=== PATIENT | female | born 1980 | race Caucasian/White ===

== ENCOUNTER → 2018-05-05 17:41 | Outpatient (CLI) | payer OTHER, SELFPAY ==
--- NOTE | 2018-05-05 17:44 | MRI_ITS ---
STUDY: MRI BRAIN WITH AND WITHOUT CONTRAST REASON FOR EXAM: Female, 37 years old. Headaches and history of cholesteatoma removal TECHNIQUE: Standardized multiplanar fat and water weighted pulse sequences were obtained. 6 ml of Gadavist contrast material was administered intravenously for the contrast portion of the examination. COMPARISON: March 17, 2012 FINDINGS: Normal size of the ventricles and extra-axial spaces for the patient's age. Normal white matter tracts of the supratentorial brain. Normal bilateral basal ganglia. Normal thalami. There is no extra-axial fluid accumulation. Normal flow voids within the major intracranial circulation suggesting patency by spin echo criteria. Normal venous enhancement. There is no enhancing intra-axial or extra-axial abnormality. Normal sella turcica, pituitary gland, infundibular stalk, optic chiasm and hypothalamus. Normal tectal plate and pineal gland. Normal midbrain, janette and medulla. Normal cerebellum. Normal basal cisterns. Normal bilateral temporal bones. Normal bilateral internal auditory canals. Postop change status post right mastoidectomy No demonstrated orbital abnormality, within the constraints of a routine brain study. There is a small mucous retention cyst within the maxillary sinuses bilaterally. Normal calvarium and skull base. Normal visualized soft tissue structures. Normal visualized upper cervical spine. MRI/Brain W/WO Contrast IMPRESSION: Normal unenhanced and enhanced MRI of the brain. Status post right mastoidectomy. Small bilateral mucous retention cysts in the maxillary sinuses Electronically Signed: Dale Pelletier MD at 19:28 EDT , Service support ,
== END ==
PROVIDERS: Referring Provider Psychiatry & Neurology Neurology; Visit Provider Psychiatry & Neurology Neurology
DX: R51 Headache (principal); Z86.69 Personal history of other diseases of the nervous system and sense organs
CPT/HCPCS: 70553; A9585

== ENCOUNTER → 2018-10-25 16:52 | Outpatient (CLI) | payer OTHER, SELFPAY | PROVIDERS: Referring Provider Nurse Practitioner Family | DX: G47.10 Hypersomnia, unspecified (principal) | CPT/HCPCS: 95806 ==

== ENCOUNTER → 2018-11-07 | Outpatient (CLI) | payer OTHER, SELFPAY | END | disposition home or self-care (01) | LOC: SL 14:03 | PROVIDERS: Referring Provider Nurse Practitioner Family | DX: Z46.89 Encounter for fitting and adjustment of other specified devices (principal) ==

== ENCOUNTER → 2019-03-15 | Outpatient (CLI) | payer OTHER, SELFPAY ==
--- NOTE | 2019-03-15 12:30 | RAD_ITS ---
STUDY: X-RAY CHEST REASON FOR EXAM: Female, 38 years old. Chest pain/pressure TECHNIQUE: PA and lateral views of the chest. COMPARISON: None. FINDINGS: The lungs are clear and expanded. There is no demonstrated pleural abnormality. Normal size heart. Normal mediastinum and rafal. Normal visualized pulmonary arteries. Normal visualized aortic arch and descending thoracic aorta. Normal visualized thoracic spine. Normal visualized ribs, clavicles, and shoulders. There is no demonstrated abnormality of the visualized soft tissue structures of the upper abdomen. RAD/Chest PA and Lateral IMPRESSION: Normal x-ray examination of the chest. Electronically Signed: Rosendo Zhong MD at 17:02 EDT , Service support ,
== END | disposition home or self-care (01) ==
LOC: RAD 12:29
PROVIDERS: Referring Provider Nurse Practitioner Family; Visit Provider Nurse Practitioner Family
DX: R63.4 Abnormal weight loss (principal)
CPT/HCPCS: 71046

== ENCOUNTER 2019-04-04 07:50 | Emergency (ER) | payer OTHER, SELFPAY ==
--- NOTE | 2019-03-22 03:49 | HP_ITS ---
Intake Vital Signs 03/22/19 Height 5 ft 4.5 in 03/22/19 Weight: 113 lb 03/22/19 Body Mass Index (BMI) 19.1 03/22/19 Blood Pressure 110/75 03/22/19 Blood Pressure Location Rt brachial 03/22/19 Respiratory Rate 18 03/22/19 Pulse Rate 92 03/22/19 Pulse Source Monitor 03/22/19 Temperature 97.8 F 03/22/19 Pulse Ox 99 03/22/19 Oxygen Delivery Method room air Intake Visit Reasons: EGD/C-Scope Consult Frame Aligner Required: No Is patient in pain?: No Allergies [facility] [[facility] Allergy (Intermediate, Verified 03/22/19 14:59) Rash neomycin Allergy (Intermediate, Verified 03/22/19 14:59) rash Sulfa (Sulfonamide Antibiotics) Allergy (Intermediate, Verified 03/22/19 14:59) Rash Medications duloxetine 20 mg capsule,delayed release 20 mg PO DAILY cap 03/22/19 [History Confirmed 03/22/19] glimepiride 4 mg tablet 4 mg PO QAM 03/22/19 [History Confirmed 03/22/19] loperamide 2 mg capsule 2 mg PO DAILY cap 03/22/19 [History Confirmed 03/22/19] metformin 1,000 mg tablet 1,000 mg PO BID 03/22/19 [History Confirmed 03/22/19] multivitamin capsule 1 cap PO DAILY 03/22/19 [History] pantoprazole 40 mg tablet,delayed release 40 mg PO DAILY 03/22/19 [History Confirmed 03/22/19] potassium gluconate 600 mg (99 mg) tablet 600 mg PO DAILY 03/22/19 [History] [facility] Medical History Diabetes (Acute) Fibromyalgia (Acute) GERD (gastroesophageal reflux disease) (Acute) History of back problems (Acute) Polyarthritis (Acute) Weight loss (Acute) Chronic pain (Chronic) Surgical History History of (Acute) History of mastoidectomy (Acute) Family History Mother Asthma Grandfather Cancer bone and lung cancer Grandmother Diabetes Hypertension Social History (Updated 03/22/19 @ 15:49 by Darryl Leung MD) Smoking Status: Former smoker alcohol intake: never substance use type: marijuana, other details: prescription for medical marijuana four times daily HPI HPI HPI: PARDEEP YUN, is a 38 F who presents to the office today for HPI HPI Surgical H&P: Yes HPI: PARDEEP YUN, is a 38 F who presents to the office today for Evaluation for endoscopy. Patient has a known history of GERD as well as a history of colon polyps. It is been more than 3 years since her last colonoscopy. In addition the patient has lost approximately 20 pounds over the last 6 months unintentionally. She has been complaining of significant amount of fatigue. She states that her reflux is controlled providing she takes her medication. ROS General General: Yes weight change and fatigue; no appetite, colon cancer, breast cancer or weakness HEENT HEENT: Yes eye surgery; no difficulty swallowing, eye injury, swollen glands or hoarseness Endo Endocrine: Yes diabetes mellitus; no thyroid disease, thyroid cancer, Hair loss, heat intolerance or cold intolerance Skin Skin: No rash or changing moles Breast Breast: No left breast lump, right breast lump, nipple discharge, breast pain, abnormal mammogram, abnormal US or breast enlargement Musc Musculoskeletal: Yes back problems and arthritis; no rheumatoid arthritis, gout or joint pain Cardio Cardiovascular: No murmur, pacemaker, heart disease, atrial fibrillation, high blood pressure, heart attack, heart stent, palpitations, shortness of breat with exertion or chest pain Psych Psychiatric: Yes depression and anxiety; no hearing voices Resp Respiratory: No shortness of breath, Yes sleep apnea, No cough, No COPD, Yes asthma, No emphysema, No wheezing Gastro Gastrointestinal: No abdominal pain, No nausea or vomiting, No diarrhea, No constipation, No blood in stool, Yes acid reflux, No hemorrhoids, No ulcers, No gallbladder problem, No black,tarry stools [place] Hematologic: No blood thinners, No blood disorders, No bleeding, No anemia, No blood clots Neuro Neurologic: No system reviewed and no additional complaints, except as docu, No as per HPI, No abnormal walking, No abnormal hearing, No abnormal movements, No abnormal speech, No behavioral changes, No burning sensations, No confusion, No seizure-like activity, No unsteadiness, No dizziness, No localized weakness, No frequent falls, No headache(s), No lack of coordination, No loss of vision, No memory loss, No numbness, No other visual disturbances, No radiating pain, No restless legs, No sensory deficit, No fainting, No tingling, No tremor(s), No weakness, No other Exam Const General: no acute distress, well developed, well hydrated Orientation: oriented to person, oriented to place, oriented to time [facility] Head: normocephalic, atraumatic Ears: external ears normal Mouth: moist mucous membranes Eyes Sclera: sclerae normal Pupils: normal by confrontation Neck Neck: no lymphadenopathy noted Neck mass: No Thyroid: thyroid normal, symmetrical Chest Chest palpation & inspection: normal inspection of the chest Breast Palpation: No nipple discharge Resp Effort & Inspection: normal respiratory effort Auscultation: clear to auscultation bilaterally Percussion: percussion normal Cardio Rate: regular rate Rhythm: regular rhythm Heart Sounds: no murmurs GI Palpation: soft, no hepatosplenomegaly, no masses, nontender Rectal Exam: other Other: Rectal exam deferred. Extrem General: normal to inspection, no clubbing, cyanosis or edema Assessment & Plan Problems 1. Gastroesophageal reflux disease, esophagitis presence not specified K21.9 2. Personal history of colonic polyps Z86.010 3. Weight loss, unintentional R63.4 Plan I have discussed the above with the patient. I have offered the patient colonoscopy As well as an EGD for evaluation. I have explained the risks/benefits of the procedure and described the procedure. I have discussed the risks with the patient, including but not limited to: infection, bleeding, perforation of the GI tract requiring emergency surgery, inability to complete the procedure, injury to any internal organs, complications of anesthesia, etc. - the patient understands and agrees to proceed. I have answered all the patient's questions to the patient's satisfaction and the patient has no further questions. The patient has been given instructions for the colon cleansing preparation. Coding Level of Care Code Off vis,new,level 3 Diagnoses Gastroesophageal reflux disease, esophagitis presence not specified K21.9 ??Esophagitis presence: esophagitis presence not specified Personal history of colonic polyps Z86.010 Weight loss, unintentional R63.4 03/22/19 5169 <Electronically signed by Darryl Peabod y MD> Date _ Darryl Leung MD I have re-examined the patient. There are no clinical changes since date of exam.
[2019-03-22 14:58] VITALS: BMI 19.1
[2019-04-04 07:17] VITALS: BP 100/57; PULSE 75; RESP 15; TEMP 36.6; O2SAT 100; BMI 18.7
[2019-04-04 07:19] LABS: Internal QC Validated? YES +Cl - CLEAR BKGD; Pregnancy, Urine Negative Negative
[2019-04-04] MEDS: Lactated Ringers 1,000 ML 100 ML IV (07:23)
[2019-04-04 07:26] LABS: Bedside Glucose > 500 mg/dL (70-110)
[2019-04-04 07:38] LABS: Glucose 564 mg/dL (74-106)
[2019-04-04 07:51] LABS: Anion Gap 9 (5-15); BUN 2 mg/dL (7-18); Calcium,Total 8.7 mg/dL (8.5-10.1); Chloride 101 mmol/L (98-107); EST Glomerular Filtration Rate 66 mL/min (>60); Est Glom Filt Rate - Afr Amer 80 mL/min (>60); Estimated Creatinine Clearance 60.45 ml/min; Potassium 3.5 mmol/L (3.5-5.1); Sodium Level 134 mmol/L (136-145)
[2019-04-04 08:06] VITALS: BP 91/65; PULSE 80; RESP 18; TEMP 36.6; O2SAT 100; BMI 18.8
--- NOTE | 2019-04-04 08:33 | ED.DCSUM_ITS ---
History of Present Illness Chief Complaint: Hyperglycemia Informant: Patient Onset: - - Chronic Narrative: Patient came into endoscopy today for a colonoscopy secondary to recent weight loss. Her blood sugar was noted to be over 500 and she was sent to the emergency room. Patient is on glyburide and metformin for her diabetes. She does not check her blood sugars and states she knows she been running high for quite some time. She last saw her physician 3 weeks ago but there is no medication adjustments made at that time. She had missed an appointment last week secondary to being called into work. Past Medical History - Allergies and Home Meds Allergies/Adverse Reactions: Allergies cefaclor [From Ceclor] Allergy (Intermediate, Verified 04/04/19 08:08) Rash neomycin Allergy (Intermediate, Verified 04/04/19 08:08) rash Sulfa (Sulfonamide Antibiotics) Allergy (Intermediate, Verified 04/04/19 08:08) Rash Primary Care Physician: [facility] Womack [Primary Care Provider] - Prior records reviewed: Yes Past Medical History: - - Reviewed Lives: Spouse/ Significant Other Smoking Status: Former smoker Drugs: Marijuana Review of Systems General: Denies: Chills, Fever Eyes: Denies: Visual changes - bilaterally ENT: Denies: Bilateral ear pain Cardiovascular: Denies: Chest pain Respiratory: Denies: Dyspnea Gastrointestinal: Denies: Abdominal pain, Nausea, Vomiting, Diarrhea Skin: Denies: Wounds Neurological: Denies: Headache Allergy: Denies: Uticaria Physical Exam Vital Signs/Narrative: Vital Signs Temp Pulse Resp BP Pulse Ox 04/04/19 08:06 97.9 F 80 18 91/65 100 04/04/19 07:17 97.9 F 75 15 100/57 L 100 Inital Vital Signs reviewed: Yes General: Well nourished, Well developed Eyes: EOMI Neck: Supple Cardiovascular: Regular rate, Regular rhythm Respiratory: No distress, CTA bilaterally Abdomen: Soft, Nontender, Normal bowel sounds Extremities: Nontender Skin: Normal color, No rash Neurological: Alert, Oriented x3 Psychological: Normal affect Diagnostic/Tx/Re-eval Laboratory Results 04/04/19 04/04/19 04/04/19 06:58 06:58 07:00 WBC RBC Hgb Hct MCV MCH MCHC RDW Std Deviation RDW Coeff of Solitario Plt Count MPV Immature Gran % (Auto) Neut % (Auto) Lymph % (Auto) [place] % (Auto) Eos % (Auto) Baso % (Auto) Absolute Neuts (auto) Absolute Lymphs (auto) Nucleated RBC % Sodium Potassium Chloride Carbon Dioxide Anion Gap BUN Creatinine Estim Creat Clear Calc Est GFR (MDRD) Af Amer Est GFR (MDRD) Non-Af BUN/Creatinine Ratio Glucose Hemoglobin A1c Calcium Urine Color Yellow Urine Clarity Sl. Cloudy Urine pH 5.0 Ur Specific Crystal 1.010 Urine Protein Negative Urine Glucose (UA) 1000 H Urine Ketones Negative Urine Occult Blood Negative Urine Nitrite Negative Urine Bilirubin Negative Urine Urobilinogen Normal Ur Leukocyte Esterase Negative Urine RBC 0 SEEN Urine WBC 0 SEEN Ur Squamous Epith Cells 0-5 SEEN Urine Bacteria 0 SEEN Urine Mucus 0 SEEN Urine Test Negative Acetone Level POC Glucose > 500 H* 04/04/19 04/04/19 04/04/19 07:10 08:45 08:45 WBC 9.1 RBC 5.03 Hgb 15.3 H Hct 44.8 MCV 89.1 MCH 30.4 MCHC 34.2 RDW Std Deviation 41.0 RDW Coeff of Solitario 12.6 Plt Count 290 MPV 10.6 Immature Gran % (Auto) 0.400 Neut % (Auto) 64.8 Lymph % (Auto) 28.3 [place] % (Auto) 4.6 Eos % (Auto) 1.4 Baso % (Auto) 0.5 Absolute Neuts (auto) 5.9 Absolute Lymphs (auto) 2.58 Nucleated RBC % 0 Sodium 134 L Potassium 3.5 Chloride 101 Carbon Dioxide 24.0 Anion Gap 9 BUN 2 L Creatinine 1.00 Estim Creat Clear Calc 60.45 Est GFR (MDRD) Af Amer 80 Est GFR (MDRD) Non-Af 66 BUN/Creatinine Ratio 2.0 L Glucose 564 H* Hemoglobin A1c Calcium 8.7 Urine Color Urine Clarity Urine pH Ur Specific Crystal Urine Protein Urine Glucose (UA) Urine Ketones Urine Occult Blood Urine Nitrite Urine Bilirubin Urine Urobilinogen Ur Leukocyte Esterase Urine RBC Urine WBC Ur Squamous Epith Cells Urine Bacteria Urine Mucus Urine Test Acetone Level NEGATIVE POC Glucose 04/04/19 04/04/19 08:45 10:19 WBC RBC Hgb Hct MCV MCH MCHC RDW Std Deviation RDW Coeff of Solitario Plt Count MPV Immature Gran % (Auto) Neut % (Auto) Lymph % (Auto) [place] % (Auto) Eos % (Auto) Baso % (Auto) Absolute Neuts (auto) Absolute Lymphs (auto) Nucleated RBC % Sodium Potassium Chloride Carbon Dioxide Anion Gap BUN Creatinine Estim Creat Clear Calc Est GFR (MDRD) Af Amer Est GFR (MDRD) Non-Af BUN/Creatinine Ratio Glucose Hemoglobin A1c 14.1 H Calcium Urine Color Urine Clarity Urine pH Ur Specific Crystal Urine Protein Urine Glucose (UA) Urine Ketones Urine Occult Blood Urine Nitrite Urine Bilirubin Urine Urobilinogen Ur Leukocyte Esterase Urine RBC Urine WBC Ur Squamous Epith Cells Urine Bacteria Urine Mucus Urine Test Acetone Level POC Glucose 369 H - Medical Decision Making Patient was given a liter of IV fluids and blood sugar came down to 369. I spoke with her provider through [facility]. Patient is willing to start insulin and will be started on 15 units at bedtime and she will be told to hold her glimepiride. She has a follow-up appointment scheduled next week. She was given 10 units of insulin here after receiving 1 L IV fluids. ED Disposition - Plan for ED Patient: Disposition: Home or Assisted Living Diagnosis: Hyperglycemia Instructions: ED Diabetic Hyperglycemia Prescriptions: Insulin Glargine,Hum.rec.anlog [Basaglar Kwikpen U-100] 15 unit SC QHS #1 insuln.pen [facility] [Primary Care Provider] - [facility] appointment Additional Instructions: STOP YOUR GLIMEPIRIDE. Start insulin at bedtime. Follow-up next week as scheduled.
[2019-04-04 08:49] LABS: Bacteria 0 SEEN /hpf (None Seen); Mucous, Urine 0 SEEN /hpf (<or=2+); Red Blood Cells-Urine 0 SEEN /hpf (0-5); White Blood Cells 0 SEEN /hpf (0-5)
[2019-04-04 08:50] LABS: Absolute Lymphocyte Count 2.58 X10^3/uL (0.83-4.51); Absolute Neutrophil Count 5.9 X10^3/uL (2.0-7.7); Basophil# 0.05 X10^3/uL; Basophil% 0.5 % (0-1); Eosinophil# 0.13 X10^3/uL; Eosinophils% 1.4 % (0-5); Hematocrit 44.8 % (37-47); Hemoglobin 15.3 g/dL (12.0-15.0); Lymphocyte # 2.58 X10^3/ul (4.0); Lymphocyte % 28.3 % (19-41); Mean Corp Hgb Conc 34.2 g/dL (32-36); Mean Corpuscular Hgb 30.4 pg (27.0-32.0); Mean Corpuscular Volume 89.1 fL (81-99); Mean Platelet Vol. 10.6 fl (6.2-12.0); Monocyte# 0.42 X10^3/uL; Monocyte% 4.6 % (0-10); NRBC Flagged by Analyzer 0 % (0-5); Neutrophil % 64.8 % (47-70); Platelet Count 290 K/mm3 (150-450); RBC Distribution Width CV 12.6 % (11.6-14.6); Red Blood Count 5.03 M/mm3 (4.2-5.4); White Blood Count 9.1 K/mm3 (4.4-11.0)
[2019-04-04 08:54] LABS: Color, Urine Yellow (Yellow); Glucose, Dipstick 1000 mg/dl (Normal); Ketone-Dipstick Negative (Negative); Leukocyte Esterase-Dipstick Negative /ul (Negative); Nitrite-Dipstick Negative (Negative); Occult Blood-Urine Negative /ul (Negative); Protein-Dipstick Negative (Negative); Urine Bilirubin Dipstick Negative (Negative); Urine Clarity Sl. Cloudy (Clear); Urine Urobilinogen Normal (Normal)
[2019-04-04] MEDS: 0.9% Normal Saline 1,000 ML 1000 ML IV (08:54)
[2019-04-04 08:59] LABS: Squamous Epithelial Cells - UA 0-5 SEEN /hpf (5-10)
[2019-04-04 09:11] LABS: Hemoglobin A1c 14.1 % (4.2-6.3)
[2019-04-04 10:26] LABS: Bedside Glucose 369 mg/dL (70-110)
[2019-04-04 10:27] VITALS: BP 107/78; PULSE 73; RESP 16; O2SAT 100
[2019-04-04] MEDS: 0.9% Normal Saline 1,000 ML 150 ML IV (10:36)
[2019-04-04] MEDS: Insulin Lispro 100 UNIT/ML INSULN.PEN 10 UNIT SC (10:37)
[2019-04-04 11:28] VITALS: BP 97/72; PULSE 80; RESP 16; O2SAT 98
[2019-04-04 11:50] LABS: Bedside Glucose 370 mg/dL (70-110)
--- NOTE | 2019-04-04 12:17 | ED.RN ---
teaching went over and given with pt returning demo well. instructed on insulin and checking bs 4x a day and keeping log. no questions voiced
[2019-04-04 12:18] VITALS: BP 81/59; PULSE 73; RESP 16; O2SAT 98
== END 2019-04-04 12:21 | disposition home or self-care (01) ==
LOC: EN 07:51 → AC 07:53 → ED 08:12
PROVIDERS: Anesthesiology; Emergency Provider Emergency Medicine; Visit Provider Surgery
DX: E11.65 Type 2 diabetes mellitus with hyperglycemia (principal); Z87.891 Personal history of nicotine dependence; Z79.84 Long term (current) use of oral hypoglycemic drugs
CPT/HCPCS: 80048; 81001; 81025; 82009; 82962; 83036; 85025; 96360; 96361; 99284; J7030; J7120; A4216; J2405

== ENCOUNTER → 2019-06-27 20:33 | Outpatient (CLI) | payer OTHER, SELFPAY ==
[2019-06-13 14:52] VITALS: BMI 18.8
== END ==
DX: G47.33 Obstructive sleep apnea (adult) (pediatric) (principal)
CPT/HCPCS: 95810

== ENCOUNTER 2019-07-09 06:29 | Day surgery (SDC) | payer OTHER, SELFPAY ==
--- NOTE | 2019-06-13 03:08 | HP_ITS ---
Intake Vital Signs 06/13/19 Body Mass Index (BMI) 18.8 Intake Visit Reasons: reschedule for cscope/egd, blood sugar controlled Plastic Extrusion Operator Required: No Is patient in pain?: No Allergies cefaclor [From Ceclor] Allergy (Intermediate, Verified 06/13/19 14:51) Rash neomycin Allergy (Intermediate, Verified 06/13/19 14:51) rash Sulfa (Sulfonamide Antibiotics) Allergy (Intermediate, Verified 06/13/19 14:51) Rash Medications duloxetine 20 mg capsule,delayed release 20 mg PO DAILY cap 03/22/19 [History Confirmed 06/13/19] metformin 1,000 mg tablet 1,000 mg PO BID 03/22/19 [History Confirmed 06/13/19] multivitamin capsule 1 cap PO DAILY 03/22/19 [History Confirmed 06/13/19] pantoprazole 40 mg tablet,delayed release 40 mg PO DAILY 03/22/19 [History Confirmed 06/13/19] potassium gluconate 600 mg (99 mg) tablet 600 mg PO DAILY 03/22/19 [History Confirmed 06/13/19] Levonorgesterol [Mirena] 1 ea IY X1 03/30/19 [History Confirmed 06/13/19] Insulin Glargine,Hum.rec.anlog [Juan Magljean marie Cruz U-100] 15 unit SUBCUT [facility] #1 insuln.pen 04/04/19 [Rx Confirmed 06/13/19] [facility] Medical History Diabetes (Acute) Fibromyalgia (Acute) GERD (gastroesophageal reflux disease) (Acute) History of back problems (Acute) Polyarthritis (Acute) Weight loss (Acute) Chronic pain (Chronic) Surgical History History of (Acute) History of mastoidectomy (Acute) Family History Mother Asthma Grandfather Cancer bone and lung cancer Grandmother Diabetes Hypertension Social History (Updated 06/13/19 @ 15:08 by Darryl Leung MD) Smoking Status: Former smoker alcohol intake: never substance use type: marijuana, other details: prescription for medical marijuana four times daily HPI HPI HPI: PARDEEP YUN, is a 38 F who presents to the office today for HPI HPI Surgical H&P: Yes HPI: PARDEEP YUN, is a 38 F who presents to the office today for Endoscopic evaluation. Patient has a known history of GERD as well as a history of colon polyps. It is been more than 3 years since her last colonoscopy. In addition the patient has lost approximately 20 pounds over the last 6 months unintentionally. She has been complaining of significant amount of fatigue. She states that her reflux is controlled providing she takes her medication. Prior to her Endoscopy several months ago she was noted to have blood sugars above 500 everything was subsequently canceled she has been seeing her primary care physician and has been working on getting her blood sugars both low 500 and for the most part she has been doing well it is as good as it is going to get prior to her seeing the wheel blocker for further evaluation. In her logs her blood sugars have been running all the way from mid 300s all the way down to 63 she has been taking very good notes on what she is taking and what her blood sugars are her blood sugars just before lunch seem to be the hardest wants to keep under control in the ones before dinner seem to be the lowest. All of these have been well below 500. ROS General General: Yes weight change and fatigue; no appetite, colon cancer, breast cancer or weakness HEENT HEENT: Yes eye surgery; no difficulty swallowing, eye injury, swollen glands or hoarseness Endo Endocrine: Yes diabetes mellitus; no thyroid disease, thyroid cancer, Hair loss, heat intolerance or cold intolerance Skin Skin: No rash or changing moles Breast Breast: No left breast lump, right breast lump, nipple discharge, breast pain, abnormal mammogram, abnormal US or breast enlargement Musc Musculoskeletal: Yes back problems and arthritis; no rheumatoid arthritis, gout or joint pain Cardio Cardiovascular: No murmur, pacemaker, heart disease, atrial fibrillation, high blood pressure, heart attack, heart stent, palpitations, shortness of breat with exertion or chest pain Psych Psychiatric: Yes depression and anxiety; no hearing voices Resp Respiratory: No shortness of breath, Yes sleep apnea, No cough, No COPD, Yes asthma, No emphysema, No wheezing Gastro Gastrointestinal: No abdominal pain, No nausea or vomiting, No diarrhea, No constipation, No blood in stool, Yes acid reflux, No hemorrhoids, No ulcers, No gallbladder problem, No black,tarry stools [place] Hematologic: No blood thinners, No blood disorders, No bleeding, No anemia, No blood clots Neuro Neurologic: No weakness Exam Const General: no acute distress, well developed, well hydrated Orientation: oriented to person, oriented to place, oriented to time [facility] Head: normocephalic, atraumatic Ears: external ears normal Mouth: moist mucous membranes Eyes Sclera: sclerae normal Pupils: normal by confrontation Neck Neck: no lymphadenopathy noted Neck mass: No Thyroid: thyroid normal, symmetrical Chest Chest palpation & inspection: normal inspection of the chest Breast Palpation: No nipple discharge Resp Effort & Inspection: normal respiratory effort Auscultation: clear to auscultation bilaterally Percussion: percussion normal Cardio Rate: regular rate Rhythm: regular rhythm Heart Sounds: no murmurs GI Palpation: soft, no hepatosplenomegaly, no masses, nontender Rectal Exam: other Other: Rectal exam deferred. Extrem General: normal to inspection, no clubbing, cyanosis or edema Assessment & Plan Problems 1. Gastroesophageal reflux disease, esophagitis presence not specified K21.9 2. Personal history of colonic polyps Z86.010 3. Weight loss, unintentional R63.4 Plan I have discussed the above with the patient. I have offered the patient colonoscopy As well as an EGD for evaluation. I have explained the risks/benefits of the procedure and described the procedure. I have discussed the risks with the patient, including but not limited to: infection, bleeding, perforation of the GI tract requiring emergency surgery, inability to complete the procedure, injury to any internal organs, complications of anesthesia, etc. - the patient understands and agrees to proceed. I have answered all the patient's questions to the patient's satisfaction and the patient has no further questions. The patient has been given instructions for the colon cleansing preparation. Coding Level of Care Code Off vis,est,level 3 Diagnoses Gastroesophageal reflux disease, esophagitis presence not specified K21.9 ??Esophagitis presence: esophagitis presence not specified Personal history of colonic polyps Z86.010 Weight loss, unintentional R63.4 06/13/19 1508 <Electronically signed by Darryl white MD> Date _ Darryl Leung MD I have re-examined the patient. There are no clinical changes since date of exam.
[2019-06-13 14:52] VITALS: BMI 18.8
--- NOTE | 2019-07-09 | IMM_PTH ---
PATIENT: PARDEEP YUN LOC: EN U#:[id number] AGE/SX: 39/F ROOM: RE07/09/[address]: Dr. Darryl Leung MD : 1980 BED: DIS: 07/09/2019 SPEC #: [id number] RECD: 07/09/19 15:27 STATUS: SONIA MEENAKSHI #: [id number] MICAELA: 07/09/19 00:[address]: Darryl Leung DEPT: IMMUNOHISTOCHEMISTRY RECD BY: Sully Frias ENTERED: 07/09/19 15:28 SP TYPE: IMMUNO OTHR DR: Kerry Gilbert, SUPERVISOR PASTRY-C [facility] Tissues: Gastric mucous membrane Procedures: H Pylori (initial) PHYSICIAN & INSTITUTION [place] [address] SPECIMEN INFORMATION: Tissue Source: Antrum biopsy Clinical Info: GERD, history of colon polyps and unintentional weight loss Specimen Number: [id number] CPT code: 70010 METHODOLOGY: Deparaffinized sections of prefer/formalin-fixed tissue or PAP/DQ stained slides are incubated with monoclonal/polyclonal antibodies/oligonucleotide probes. Localization is made via biotin free immunoperoxidase method. Appropriate controls are performed and reacted as expected. Results on target cell population are indicated in the following table: RESULTS: ANTIBODY / CLONE RESULT H Pylori (polyclonal) negative These tests were developed and their performance characteristics determined by [facility]. They may not have been cleared or approved by the U.S. Food and Drug Administration. The FDA has determined that such clearance or approval is not necessary. INTERPRETATION: B. Gastric antrum, biopsy: Negative for Helicobacter pylori organisms. AM:husam 07/10/19
--- NOTE | 2019-07-09 | GASB_PTH ---
PATIENT: PARDEEP YUN LOC: EN U#:[id number] AGE/SX: 39/F ROOM: RE07/09/[address]: Dr. Darryl Leung MD : 1980 BED: DIS: 07/09/2019 SPEC #: [id number] RECD: 07/09/19 13:47 STATUS: SONIA MEENAKSHI #: [id number] MICAELA: 07/09/19 00:[address]: Darryl Leung DEPT: SURGICAL PATHOLOGY RECD BY: Felipe Hazel ENTERED: 07/09/19 13:48 SP TYPE: Gastric Bx OTHR DR: Kerry Gilbert, APPLICATION ADMINISTRATOR-C [facility] Tissues: Gastric mucous membrane Procedures: Surgery Specimen Level IV HEADER OPERATION: Colonoscopy, EGD ([facility] [place]) PRE-OP DIAGNOSIS: GERD, history of colon polyps and unintentional weight loss TISSUE SUBMITTED: Antrum biopsy MICROSCOPIC DIAGNOSIS Gastric antrum, biopsy: Minimal chronic inflammation. AM:ramon 07/10/19 COMMENT The results of immunohistochemistry for Helicobacter pylori will be reported separately ([id number]). MICROSCOPIC DESCRIPTION Slides are reviewed. GROSS DESCRIPTION Received is one container labeled with the patient name and designated antrum biopsy. The specimen consists of one irregular fragment of light dhaliwal soft tissue that measures 0.3 x 0.2 x 0.1 cm. The specimen is totally submitted in one cassette. VIKA:ramon 07/09/19 TC: 3 CPT: 47472
[2019-07-09 07:00] VITALS: BP 93/66; PULSE 94; RESP 14; TEMP 36; O2SAT 99; BMI 20.8
[2019-07-09 07:12] LABS: Internal QC Validated? YES +Cl - CLEAR BKGD; Pregnancy, Urine Negative Negative
[2019-07-09] MEDS: Lactated Ringers 1,000 ML 100 ML IV (07:22)
[2019-07-09 07:40] LABS: Bedside Glucose 192 mg/dL (70-110)
--- NOTE | 2019-07-09 07:55 | OP.EGD_ITS ---
Patient Name: Ana Armas Procedure Date: 07/09/2019 7:18 AM Date of : 1980 Age: 39 Procedure: Upper GI endoscopy Indications: Heartburn, Gastro-esophageal reflux disease Providers: Darryl Leung MD Referring MD: Dayanara Ramires [facility] Medicines: See the Anesthesia note for documentation of the administered medications Patient Profile: This is a 39 year old female. Refer to note in patient chart for documentation of history and physical. Complications: No immediate complications. Procedure: Pre-Anesthesia Assessment: - Prior to the procedure, a History and Physical was performed, and patient medications and allergies were reviewed. The patient's tolerance of previous anesthesia was also reviewed. The risks and benefits of the procedure and the sedation options and risks were discussed with the patient. All questions were answered, and informed consent was obtained. Prior Anticoagulants: The patient has taken no previous anticoagulant or antiplatelet agents. ASA Grade Assessment: II - A patient with mild systemic disease. After reviewing the risks and benefits, the patient was deemed in satisfactory condition to undergo the procedure. After obtaining informed consent, the endoscope was passed under direct vision. Throughout the procedure, the patient's blood pressure, pulse, and oxygen saturations were monitored continuously. The gastroscope was introduced through the mouth, and advanced to the second part of duodenum. The upper GI endoscopy was accomplished without difficulty. The patient tolerated the procedure well. Scope In: 7:34:39 AM Scope Out: 7:38:12 AM Total Procedure Duration Time 0 hours 3 minutes 33 seconds Findings: The examined esophagus was normal. No biopsies or other specimens were collected for this exam. Localized minimal inflammation characterized by erythema was found in the prepyloric region of the stomach. Biopsies were taken with a cold forceps for Helicobacter pylori testing. The examined duodenum was normal. No biopsies or other specimens were collected for this exam. Impression: - Normal esophagus. No specimens collected. - Gastritis. Biopsied. - Normal examined duodenum. No specimens collected. Recommendation: - Discharge patient to home. - Resume previous diet. - Continue present medications. - Await pathology results. - Repeat upper endoscopy (date not yet determined) for surveillance. - Return to my office in 2 weeks. Procedure Code(s): --- Professional --- 18318, Esophagogastroduodenoscopy, flexible, transoral; with biopsy, single or multiple Diagnosis Code(s): --- Professional --- K29.70, Gastritis, unspecified, without bleeding R12, Heartburn K21.9, Gastro-esophageal reflux disease without esophagitis CPT copyright 2017 [employer]. All rights reserved. The codes documented in this report are preliminary and upon membership counselor review may be revised to meet current compliance requirements. MD Darryl Barton MD 07/09/2019 7:55:19 AM This report has been signed electronically. Number of Addenda: 0 Note Initiated On: 07/09/2019 7:18 AM
[2019-07-09 07:57] VITALS: BP 93/66; BP 99/62; PULSE 85; RESP 16; TEMP 37; O2SAT 100
--- NOTE | 2019-07-09 07:58 | OP.COLON_ITS ---
Patient Name: Ana Armas Procedure Date: 07/09/2019 7:38 AM Date of : 1980 Age: 39 Procedure: Colonoscopy Indications: High risk colon cancer surveillance: Personal history of colonic polyps Providers: Darryl Leung MD Referring MD: Dayanara Ramires [facility] Medicines: See the Anesthesia note for documentation of the administered medications Patient Profile: This is a 39 year old female. Refer to note in patient chart for documentation of history and physical. Last Colonoscopy: 3 years ago. Complications: No immediate complications. Procedure: Pre-Anesthesia Assessment: - Prior to the procedure, a History and Physical was performed, and patient medications and allergies were reviewed. The patient's tolerance of previous anesthesia was also reviewed. The risks and benefits of the procedure and the sedation options and risks were discussed with the patient. All questions were answered, and informed consent was obtained. Prior Anticoagulants: The patient has taken no previous anticoagulant or antiplatelet agents. ASA Grade Assessment: II - A patient with mild systemic disease. After reviewing the risks and benefits, the patient was deemed in satisfactory condition to undergo the procedure. After I obtained informed consent, the scope was passed under direct vision. Throughout the procedure, the patient's blood pressure, pulse, and oxygen saturations were monitored continuously. The adult colonoscope was introduced through the anus and advanced to the cecum, identified by appendiceal orifice and ileocecal valve. The colonoscopy was performed without difficulty. The patient tolerated the procedure well. The quality of the bowel preparation was good. Scope In: 7:40:07 AM Scope Withdrawal Time 0 hours 6 minutes 20 seconds Scope Out: 7:51:58 AM Total Procedure Duration Time 0 hours 11 minutes 51 seconds Findings: The entire examined colon appeared normal on direct and retroflexion views. Impression: - The entire examined colon is normal on direct and retroflexion views. - No specimens collected. Recommendation: - Discharge patient to home. - Resume previous diet. - Continue present medications. - Repeat colonoscopy in 10 years for screening purposes. - Return to my office in 1 week. Procedure Code(s): --- Professional --- 75095, Colonoscopy, flexible; diagnostic, including collection of specimen(s) by brushing or washing, when performed (separate procedure) Diagnosis Code(s): --- Professional --- Z86.010, Personal history of colonic polyps CPT copyright 2017 [employer]. All rights reserved. The codes documented in this report are preliminary and upon title one reading teacher review may be revised to meet current compliance requirements. MD Darryl Barton MD 07/09/2019 7:57:14 AM This report has been signed electronically. Number of Addenda: 0 Note Initiated On: 07/09/2019 7:38 AM
[2019-07-09 08:02] VITALS: BP 89/60; BP 93/66; PULSE 71; RESP 16; O2SAT 100
[2019-07-09 08:07] VITALS: BP 93/66; BP 95/64; PULSE 67; RESP 16; O2SAT 100
[2019-07-09 08:12] VITALS: BP 93/61; BP 93/66; PULSE 69; RESP 16; TEMP 36.9; O2SAT 100
[2019-07-09 08:30] VITALS: BP 93/66
== END 2019-07-09 09:15 | disposition home or self-care (01) ==
LOC: EN 06:30 → AC 06:31
PROVIDERS: Anesthesiology; Visit Provider Surgery
PROC: 0DJD8ZZ Inspection of Lower Intestinal Tract, Via Natural or Artificial Opening Endoscopic (ICD-10-PCS; CPT 45378; principal; 2019-07-09 07:25)
DX: K29.50 Unspecified chronic gastritis without bleeding (principal); K21.9 Gastro-esophageal reflux disease without esophagitis; E11.9 Type 2 diabetes mellitus without complications; M79.7 Fibromyalgia; M13.0 Polyarthritis, unspecified; Z87.891 Personal history of nicotine dependence; Z86.010 Personal history of colon polyps; Z79.4 Long term (current) use of insulin; Z79.899 Other long term (current) drug therapy
CPT/HCPCS: 43239; 45378; 81025; 82962; 88305; 88342; J7120; J1610; J2405

== ENCOUNTER → 2019-10-24 09:30 | Outpatient (CLI) | payer OTHER, SELFPAY ==
--- NOTE | 2019-10-24 09:36 | EKG12_ITS ---
Test Reason : CARDIAC ARRHYTHMIA Blood Pressure : / mmHG Vent. Rate : 078 BPM Atrial Rate : 078 BPM P-R Int : 106 ms QRS Dur : 084 ms QT Int : 364 ms P-R-T Axes : 071 048 045 degrees QTc Int : 414 ms Sinus rhythm with short HI Otherwise normal ECG Confirmed by HANK JOLLEY ([id number]), editorial project manager KATHLEEN SILVA ([id number]) on 10/25/2019 7:49:32 AM Referred By: Kerry Gilbert Confirmed By:HANK JOLLEY
== END ==
PROVIDERS: PCP Nurse Practitioner Family; Referring Provider Nurse Practitioner Family; Visit Provider Nurse Practitioner Family
DX: I49.9 Cardiac arrhythmia, unspecified (principal)
CPT/HCPCS: 93005

== ENCOUNTER → 2020-03-12 | Outpatient (CLI) | payer OTHER, SELFPAY ==
[2020-01-25 12:55] VITALS: BMI 20.8
--- NOTE | 2020-03-12 14:58 | NEURO ---
NCS and/or EMG Patient Report Ordering Doctor: Kerry Gilbert DATE OF SERVICE: 03/12/20 Ana Armas diagnostic testing of the right upper limb. She reports numbness and tingling of the right hand. Electrodiagnostic findings: Right median motor nerve demonstrates prolonged distal latency with normal amplitude and conduction velocity. Normal right ulnar motor response. Normal median ulnar F wave. Prolonged right median sensory latency at the wrist and palm. Normal ulnar and radial sensory responses. On needle EMG, all muscles tested showed no evidence of denervation with normal motor unit action potentials. Electrodiagnostic assessment: This is an abnormal study in the right upper limb. 1. Electrodiagnostic findings demonstrate right-sided median mononeuropathy. This is consistent with a mild right carpal tunnel syndrome. If there are any further questions, please do not hesitate to contact me
== END | disposition home or self-care (01) ==
LOC: PSN 13:55
PROVIDERS: Referring Provider Nurse Practitioner Family; Visit Provider Nurse Practitioner Family
DX: R20.0 Anesthesia of skin (principal)
CPT/HCPCS: 95886; 95910

== ENCOUNTER 2022-10-15 20:24 | Emergency (ER) | payer OTHER, SELFPAY ==
[2022-10-15 20:26] VITALS: BP 131/95; PULSE 103; RESP 18; TEMP 36.6; O2SAT 98; BMI 22.9
== END 2022-10-15 21:40 | disposition left against medical advice (07) ==
LOC: ED 21:41
PROVIDERS: Emergency Provider Student in an Organized Health Care Education/Training Program; Visit Provider Student in an Organized Health Care Education/Training Program
DX: Z53.21 Procedure and treatment not carried out due to patient leaving prior to being seen by health care provider (principal)

== ENCOUNTER → 2023-03-21 | Outpatient (CLI) | payer OTHER, SELFPAY ==
--- NOTE | 2023-03-21 07:45 | RAD_ITS ---
INDICATION: Other intervertebral disc degeneration, thoracic region EXAMINATION/TECHNIQUE: X-RAY - XR Spine Thoracic 3 Views COMPARISON: Prior study dated: Chest radiograph dated March 15, 2019 FINDINGS: VERTEBRAE: Preserved vertebral body height. No fracture. There is mild multilevel spondylolisthesis.. Preservation of the normal thoracic kyphosis. No significant facet arthropathy. There are postsurgical changes of the lower cervical spine. DISCS: Disc spaces are maintained. INCLUDED CHEST/ABDOMEN: No acute abnormalities. RAD/Thoracic Spine 3 Views IMPRESSION: Multilevel endplate spondylosis. Electronically Signed: Arminda Stearns MD at 9:10 EDT ,
== END | disposition home or self-care (01) ==
LOC: RAD 07:40
PROVIDERS: PCP Family Medicine; Referring Provider Anesthesiology Pain Medicine; Visit Provider Anesthesiology Pain Medicine
DX: M51.34 Other intervertebral disc degeneration, thoracic region (principal)
CPT/HCPCS: 72072

== ENCOUNTER → 2024-01-25 | Outpatient (CLI) | payer OTHER, SELFPAY ==
[2024-01-25 07:22] LABS: Amphetamine Urine VISTA NEGATIVE (<1000 ng/mL); Barbiturate Urine VISTA NEGATIVE (< 200 ng/mL); Benzodiazepine Urine VISTA NEGATIVE (< 200 ng/mL); Cocaine Urine VISTA NEGATIVE (< 300 ng/mL); Ecstacy Urine VISTA NEGATIVE (< 500 ng/mL); Methadone Urine VISTA NEGATIVE (< 300 ng/mL); PCP Urine VISTA NEGATIVE (< 25 ng/mL); THC Urine VISTA POSITIVE (< 50 ng/mL); Vista UDS pH Range 5
== END | disposition home or self-care (01) ==
PROVIDERS: PCP Family Medicine; Referring Provider Anesthesiology Pain Medicine; Visit Provider Anesthesiology Pain Medicine
DX: F11.20 Opioid dependence, uncomplicated (principal)
CPT/HCPCS: 80307